=== PATIENT | female | born 2000 | race Hispanic/Latino ===

== ENCOUNTER 2025-04-20 06:50 | Day surgery (SDC) | payer OTHER, BC ==
[2025-04-18 14:57] VITALS: BP 118/73; PULSE 64; RESP 18; TEMP 98.2
[~2025-04-20] VITALS: Ht 152.4 cm; Wt 73.9 kg
[2025-04-20] VITALS (16 sets, daily range): BP systolic 83–136; BP diastolic 45–85; PULSE 59–96; RESP 15–16; TEMP 96.7–97.6
[~2025-04-20 06:50] MED LIST: NORG1TAB86 PO
[2025-04-20] MEDS: LACTATED RINGERS 1000ML 1,000 ML IV ONE (07:31)
[2025-04-20] MEDS: BUPIvacaine HCL/EPINEPHrine/PF 0.25% 10ML VIAL IJ ONE (09:24)
--- NOTE | 2025-04-20 09:59 | OP ---
Operative Note: DATE OF PROCEDURE: 04/20/25 SURGEON: BRITTNEY VILLAR MD MOLD LAMINATOR: [] ANESTHESIA: General ANESTHESIOLOGIST/ACCREDITATION MANAGER: Dr. Jessica PREOPERATIVE DIAGNOSIS: Pilonidal cyst and sinus POSTOPERATIVE DIAGNOSIS: Same SYNOPSIS: [] PROCEDURE: Excision and closure of pilonidal cyst and sinus ESTIMATED BLOOD LOSS: 10 cc INDICATIONS: Recurrent infections DESCRIPTION OF PROCEDURE: Patient was brought to the operating room placed on the operating table in a supine position. Once general endotracheal anesthesia was achieved patient was positioned in prone destinee-knife positioning. Patient is intergluteal area and gluteal area were prepped and draped in sterile fashion. We then created an elliptical incision around the cyst and the sinus with a 15 blade. Dissected down to the presacral fascia and excised it completely. At the end of the excision the wound measured 6 x 5 x 3 cm in size. We then proceeded to create subcutaneous advancement flaps and released the subcutaneous tissue off the muscle and off of the skin and then proceeded to use a 2-0 Vicryl to advance the subcutaneous flaps. And closed the gap in the defect. I then did a 2nd layer of deep dermal layer with a 2-0 Vicryl suture. Skin was then closed with a nylon suture in vertical mattress sutures with 2-0 nylon. Sterile dressing is applied over top. Patient tolerated the procedure well. all counts correct x2 at the end the procedure. BRITTNEY VILLAR MD Apr 20, 2025 09:59
== END 2025-04-20 11:45 | disposition home or self-care (01) ==
LOC: DAH 06:50
PROVIDERS: ATTEND Student in an Organized Health Care Education/Training Program
DX: L05.91 Pilonidal cyst without abscess (principal); Z79.899 Other long term (current) drug therapy
CPT/HCPCS: 81025; 11772; 88304; A4606; J7120; J0690; A4215; A4223; A4222; A4221; A4663; A4450; A4600; J0665